=== PATIENT | female | born 1990 | race Caucasian/White ===

== ENCOUNTER → 2017-08-06 | Outpatient (CLI) | payer OTHER ==
[~2017-08-06] MED LIST: SERT-129 PO; SPRI28TA PO
== END ==
LOC: HPND 07:47
PROVIDERS: ATTEND Family Medicine
DX: O26.842 Uterine size-date discrepancy, second trimester (principal)
CPT/HCPCS: 76801

== ENCOUNTER → 2017-09-17 | Outpatient (CLI) | payer MEDICAID, OTHER | LOC: HPND 07:52 | PROVIDERS: ATTEND Family Medicine | DX: Z36.3 Encounter for antenatal screening for malformations (principal) | CPT/HCPCS: 76805 ==

== ENCOUNTER → 2017-09-23 | Outpatient (CLI) | payer MEDICAID ==
[2017-09-23 16:27] LABS: AUTOMATED NEUTROPHIL # 7.3 TH/MM3 (1.8-7.7); BASOPHIL % 0.3 % (0.0-2.0); EOSINOPHIL # 0.2 TH/MM3 (0-0.4); EOSINOPHIL % 1.5 % (0.0-4.0); HEMATOCRIT 36.6 % (35.0-46.0); HEMOGLOBIN 12.6 GM/DL (11.6-15.3); LYMPH % 20.2 % (9.0-44.0); MEAN CELL VOLUME 81.2 FL (80.0-100.0); MEAN CORPUSCULAR HEMOGLOBIN 27.9 PG (27.0-34.0); MEAN CORPUSCULAR HGB CONC 34.4 % (32.0-36.0); MEAN PLATELET VOLUME 7.7 FL (7.0-11.0); MONOCYTE # 0.6 TH/MM3 (0-0.9); PLATELET COUNT 272 TH/MM3 (150-450); RED BLOOD COUNT 4.51 MIL/MM3 (4.00-5.30); RED CELL DISTRIBUTION WIDTH 15.8 % (11.6-17.2); WHITE BLOOD COUNT 10.1 TH/MM3 (4.0-11.0)
== END ==
LOC: CLAB 15:36
PROVIDERS: ATTEND Family Medicine
DX: Z34.91 Encounter for supervision of normal pregnancy, unspecified, first trimester (principal)
CPT/HCPCS: 36415; 83020; 85025; 86317; 86592; 86701; 86702; 86762; 86850; 86900; 86901; 87086; 87340; 87491; 87591

== ENCOUNTER → 2017-10-15 | Outpatient (CLI) | payer MEDICAID | LOC: HPND 14:35 | PROVIDERS: ATTEND Family Medicine | DX: Z36.2 Encounter for other antenatal screening follow-up (principal) | CPT/HCPCS: 76816 ==

== ENCOUNTER 2018-02-21 18:06 | Inpatient (IN) ==
[2018-02-21] MEDS ORDERED: Sod Chloride 0.9% Inj 1,000 ML IV.CONT PRN (18:38)
[2018-02-21] MEDS ORDERED: Sodium Chlor 0.9% Inj 500 ML IV.SIG PRN (18:38)
[2018-02-21] MEDS ORDERED: Oxytocin 30 Units/500ml Premix 30 UNITS/500 ML BAG IV.SIG ONE (18:38)
[2018-02-21] MEDS ORDERED: fentaNYL Citrate Inj 100 MCG/2 ML Ampul IV.PUSH PRN ×2 (18:38)
[2018-02-21] MEDS ORDERED: Naloxone Inj 0.4 MG/ML Vial IV.PUSH PRN (18:38)
--- NOTE | 2018-02-21 18:44 | P.HPOB ---
History of Present Illness Primary Care Physician: [facility] History of Present Illness: at 41 weeks gestation, presents for scheduled induction of labor for postdates. Denies any contractions, leakage of fluid, vaginal bleeding. Positive movement. OB history: This has been uncomplicated Previous vaginal delivery in 2012, baby 7 pounds 2 ounces; complicated by preeclampsia at the end of , on magnesium Medical history: Depression/OCD Surgical history: None Meds:Sertraline 100mg daily All: NKDA - Inpatient Certification I certify that the inpatient services were ordered in accordance with Medicare regulations governing the order. This includes certification that hospital inpatient services are reasonable and necessary and in the case of services not specified as inpatient-only under 42 CFR 419.22(n), that they are appropriately provided as inpatient services in accordance to with the 2-midnight benchmark under 43 CFR 412.3(e) Estimated Total Length of Stay (Days): 2 Plans for Post Hospital Care: Home Review of Systems All other systems reviewed negative except as stated in HPI PMFSH - History History Provided By: Patient - Travel History Recent Travel in the [place] Within the Last 8 Weeks: No Recent Travel Out of the Country Within the Last 8 Weeks: No Medications and Allergies Active Medications: Active Medications Citric Acid/Sodium Citrate (Sodium Citrate/Citric Acid Liq) 30 ml PO [facility] Stop: 02/25/18 18:44 Fentanyl Citrate (Fentanyl Inj) 50 mcg IV.PUSH Q1H PRN PRN Reason: Pain Scale 3 - 5 Fentanyl Citrate (Fentanyl Inj) 100 mcg IV.PUSH Q1H PRN PRN Reason: PAIN SCALE 6 TO 10 Lactated Ringer's (Lr 1000 Ml Inj) 1,000 mls @ 3,000 mls/hr IV.SIG UNSCH PRN PRN Reason: compromise or epidural Lactated Ringer's (Lr 1000 Ml Inj) 1,000 mls @ 125 mls/hr IV.CONT .Q8H CHELSEY Sodium Chloride (Ns Inj) 1,000 mls @ 100 mls/hr IV.CONT .Q10H PRN PRN Reason: SEE LABEL COMMENTS Oxytocin (Pitocin 30 Units/Ns 500 Ml Premix) 30 units in 500 mls @ 999 mls/hr IV.SIG BOLUS ONE Stop: 02/21/18 19:08 Sodium Chloride (Ns Inj) 500 mls @ 1,000 mls/hr IV.SIG UNSCH PRN PRN Reason: SEE LABEL COMMENTS Lidocaine HCl (Xylocaine 1% Inj) 0.1 ml I-DERMAL PRN PRN PRN Reason: For IV start Stop: 02/24/18 18:37 Lidocaine HCl (Xylocaine 1% Inj) 10 ml INFILTRATN PRN PRN PRN Reason: For episiotomy repair Stop: 02/23/18 18:37 Mineral Oil (Muri-Lube Oil) 10 ml TOPICAL PRN PRN PRN Reason: PRN perineal massage Naloxone HCl (Narcan Inj) 0.1 mg IV.PUSH Q2M PRN PRN Reason: for opiate reversal Allergies Allergy/AdvReac Type Severity Reaction Status Date / Time No Known Allergies Unknown Uncoded 04/02/17 09:34 Home Medications Medication Instructions Recorded Confirmed Type prenat.vits,rocky,tkb-erha-wudih 1 tab PO DAILY 02/15/18 02/15/18 History [ Vitamin] sertraline [Zoloft] PO DAILY 02/15/18 History Exam Vital signs: Vital Signs 02/21/18 18:29 Temperature 98.2 F Pulse Rate 129 H Respiratory Rate 18 Blood Pressure 134/80 Intake & Output 02/20/18 02/21/18 02/21/18 18:59 06:59 18:59 Weight 87.543 kg Other: Weight On Admission 87.543 kg Narrative: GENERAL: Well-nourished, well-developed patient. SKIN: Warm and dry. HEAD: Normocephalic and atraumatic. EYES: No scleral icterus. No injection or drainage. ENT: No nasal drainage noted. Mucous membranes pink. Airway patent. NECK: Supple, trachea midline. No JVD. CARDIOVASCULAR: Regular rate and rhythm without murmurs, gallops, or rubs. RESPIRATORY: Breath sounds equal bilaterally. No accessory muscle use. ABDOMEN/GI: Abdomen soft, non-tender, bowel sounds present, no rebound, no guarding Gravid to 42 weeks size Fundal Height: 42 SVE: 4cm/60/-2, posterior Tracing: EFM GENITOURINARY: External Genitalia: intact and normal in appearance FHT's: baseline 140, + accels, cat 1 toco: no cxns on monitor EXTREMITIES: No cyanosis or edema. BACK: Nontender without obvious deformity. No CVA tenderness. NEUROLOGICAL: Awake and alert. Motor and sensory grossly within normal limits. Five out of 5 muscle strength in all muscle groups. Normal speech. Results - Labs CBC & Chem 7: 02/21/18 18:35 Caprini VTE Risk Assessment Caprini VTE Risk Assessment: No/Low Risk (score <= 1) Caprini Risk Assessment Model: Point Value = 1 Point Value = 2 Point Value = 3 Point Value = 5 Age 41-60 Minor surgery BMI > 25 kg/m2 Swollen legs Varicose veins or History of unexplained or recurrent spontaneous Oral contraceptives or hormone replacement Sepsis (< 1 month) Serious lung disease, including pneumonia (< 1 month) Abnormal pulmonary function Acute myocardial infarction Congestive heart failure (< 1 month) History of inflammatory bowel disease Medical patient at bed rest Age 61-74 Arthroscopic surgery Major open surgery (> 45 min) Laparoscopic surgery (> 45 min) Malignancy Confined to bed (> 72 hours) Immobilizing plaster cast Central venous access Age >= 75 History of VTE Family history of VTE Factor V Leiden Prothrombin [id number] Lupus anticoagulant Anticardiolipin antibodies Elevated serum homocysteine Heparin-induced thrombocytopenia Other congenital or acquired thrombophilia Stroke (< 1 month) Elective arthroplasty Hip, pelvis, or leg fracture Acute spinal cord injury (< 1 month) Prophylaxis Regimen: Total Risk Factor Score Risk Level Prophylaxis Regimen 0-1 Low Early ambulation 2 Moderate Order ONE of the following: *Sequential Compression Device (SCD) *Heparin 5000 units SQ BID 3-4 Higher Order ONE of the following medications: *Heparin 5000 units SQ TID *Enoxaparin/Lovenox 40 mg SQ daily (WT < 150 kg, CrCl > 30 mL/min) *Enoxaparin/Lovenox 30 mg SQ daily (WT < 150 kg, CrCl > 10-29 mL/min) *Enoxaparin/Lovenox 30 mg SQ BID (WT < 150 kg, CrCl > 30 mL/min) AND/OR *Sequential Compression Device (SCD) 5 or more Highest Order ONE of the following medications: *Heparin 5000 units SQ TID (Preferred with Epidurals) *Enoxaparin/Lovenox 40 mg SQ daily (WT < 150 kg, CrCl > 30 mL/min) *Enoxaparin/Lovenox 30 mg SQ daily (WT < 150 kg, CrCl > 10-29 mL/min) *Enoxaparin/Lovenox 30 mg SQ BID (WT < 150 kg, CrCl > 30 mL/min) AND *Sequential Compression Device (SCD) Assessment and Plan - Diagnosis (1) 41 weeks gestation of Code(s): Z3A.41 - 41 weeks gestation of Status: Acute Plan: at 41 weeks gestation, presents for scheduled induction of labor for postdates. -Admit to labor and delivery -GBS negative -Cervical exam: /-2 -Plan to proceed with Pitocin protocol -We will continue to evaluate with contractions and pain -OB hospitalist aware
[2018-02-21] MEDS ORDERED: Citric Acid/Sodium Citrate Liq 30 ML UDC PO SCH (18:45)
[2018-02-21] MEDS ORDERED: Oxytocin 30 Units/500ml Premix 30 UNITS/500 ML BAG IV.SIG PRN (19:10)
[2018-02-21 19:17] LABS: Baso % (Auto) 0.3 % (0.0-2.0); Eos # (Auto) 0.1 th/mm3 (0.0-0.4); Eos % (Auto) 0.4 % (0.0-4.0); Hematocrit 32.3 % (35.0-46.0); Hemoglobin 10.4 gm/dL (11.6-15.3); Lymph # (Auto) 1.7 th/mm3 (1.0-4.8); Lymph % (Auto) 13.3 % (9.0-44.0); Mean Corpuscular HGB Conc 32.3 % (32.0-36.0); Mean Corpuscular Hemoglobin 24.2 pg (27.0-34.0); Mean Platelet Volume 7.8 fL (7.0-11.0); Mono # (Auto) 0.7 th/mm3 (0.0-0.9); Mono % (Auto) 5.1 % (0.0-8.0); Neut # (Auto) 10.5 th/mm3 (1.8-7.7); Neut % (Auto) 80.9 % (16.0-70.0); Platelet Count 296 th/mm3 (150-450); Red Blood Count 4.31 mil/mm3 (4.00-5.30); Red Cell Distribution Width 16.7 % (11.6-17.2); White Blood Count 12.9 th/mm3 (4.0-11.0)
[2018-02-21] MEDS ORDERED: Lidocaine 1% Inj 50 ML Vial ONE (19:23)
[2018-02-21 19:32] LABS: Amphetamine Urine With Conf Neg (Neg); Benzodiazepine Urine With Conf Neg (Neg)
[2018-02-21 19:38] LABS: Bilirubin,Urine Negative (Negative); Clarity,Urine Hazy (Clear); Color,Urine Yellow (Yellw/Straw); Glucose,Urine (UA) Negative (Negative); Leukocyte Esterase,Urine Trace (Negative); Mucus,Urine Moderate /lpf (Occasional); Nitrite,Urine Negative (Negative); Specific Gravity,Urine 1.025 (1.002-1.035); Squamous Epithelial Cell,Urine 3 /hpf (0-5)
[2018-02-21] MEDS ORDERED: fentaNYL 2MCG-Bupiv 0.125% Epi 150 ML EPIDURAL ONE (21:38)
[2018-02-21] MEDS ORDERED: Bupivacaine PF 0.25% Inj 10 ML Vial ONE (21:49)
[2018-02-21] MEDS ORDERED: Lidocaine PF 1% Inj 5 ML Vial ONE (21:49)
[2018-02-21] MEDS ORDERED: fentaNYL 2MCG-Bupiv 0.125% Epi 150 ML EPIDURAL PRN (22:25)
[2018-02-21] MEDS ORDERED: fentaNYL Citrate Inj 100 MCG/2 ML Ampul EPIDURAL ONE (22:25)
--- NOTE | 2018-02-22 00:46 | P.OBLABOR ---
Subjective Interval history: at 41 weeks gestation, presented for scheduled induction of labor for postdates. Patient has progressed quickly with Pitocin IOL. There was some concern for some variable decelerations. Thus, we decided to perform AROM. Objective Vital Signs: Vital Signs - 8 hr 02/21/18 18:29 02/21/18 18:55 02/21/18 19:28 Temperature 98.2 F Pulse Rate 129 H 120 H 117 H Respiratory Rate 18 Blood Pressure 134/80 134/90 02/21/18 19:58 02/21/18 20:40 02/21/18 20:41 Temperature Pulse Rate 103 H Respiratory Rate 16 16 Blood Pressure 134/83 02/21/18 20:45 02/21/18 21:33 02/21/18 21:56 Temperature 98.2 F Pulse Rate 97 H Respiratory Rate 16 16 Blood Pressure 140/83 02/21/18 22:00 02/21/18 22:02 02/21/18 22:10 Temperature Pulse Rate 100 H 101 H Respiratory Rate 16 Blood Pressure 137/88 02/21/18 22:11 02/21/18 22:25 02/21/18 22:45 Temperature Pulse Rate 81 96 H Respiratory Rate Blood Pressure 129/86 133/75 133/74 02/21/18 22:53 02/21/18 23:00 02/21/18 23:10 Temperature 98.0 F Pulse Rate 90 Respiratory Rate 16 Blood Pressure 130/79 02/21/18 23:15 02/21/18 23:25 02/21/18 23:40 Temperature Pulse Rate 88 79 Respiratory Rate 16 Blood Pressure 121/80 107/53 L 02/21/18 23:45 02/22/18 00:05 02/22/18 00:06 Temperature Pulse Rate 82 90 Respiratory Rate 16 Blood Pressure 122/75 122/80 02/22/18 00:25 Temperature Pulse Rate 92 H Respiratory Rate Blood Pressure 130/89 Objective: Pelvic Exam: Dilatation: [7-8 cm] Effacement: [100%] Station: [0] Presentation: [vertex] Membranes: [AROM with clear fluid at 1230] Uterine Contractions: [q2min, but then recently none] FHT's: Category: [Cat ii because variables are present] Baseline: [120 bpm] Reactive: [reactive] Variability: [moderate] Decels: [variables are present] Artificial ROM Date: 02/22/18 Artificial ROM Time: 00:30 Assessment and Plan - Diagnosis (1) 41 weeks gestation of Code(s): Z3A.41 - 41 weeks gestation of Status: Acute Plan: at 41 weeks gestation, presents for scheduled induction of labor for postdates. at 41 weeks gestation, presents for scheduled induction of labor for postdates. Patient has progressed quickly with Pitocin IOL. There was some concern for some variable decelerations. Thus, we decided to perform AROM. Pelvic Exam: [7-8 cm]/[100%]/[0] Performed AROM with clear fluid at 1230 FHT's: Category: [Cat ii because variables are present] -Plan to proceed with Pitocin protocol -epidural in place -We will continue to evaluate with c/f variable decel's -OB hospitalist aware
--- NOTE | 2018-02-22 02:05 | P.OBDELI ---
Weeks Gestation: 41 Medical Induction of Labor: Yes Medical Induction Start Date: 02/21/18 Medical Induction Start Time: 19:30 Artificial Rupture of Membrane: Yes (at 1230, clear fluid) Artificial ROM Date: 02/22/18 Artificial ROM Time: 12:30 Anesthesia: Epidural Episiotomy: none Vaginal Delivery: Normal Presentation: Occiput anterior Nuchal Cord: None Delayed Cord Clamping (45 sec): Yes Placenta: Spontaneous delivery, Intact Laceration: Vaginal (1st degree rick-urethral lacerations), Perineal (2nd degree ), 2 deg Repair: Chromic running (3-0 chromic used to repair 2nd degree perineal laceration), Vicryl running (4-0 vicryl used to repair BL 1st degree rick- urethral lacerations) Estimated blood loss (mL): 250 : Female Additional Information: Delivery supervised by Dr. Chatman who performed the laceration repairs.
[2018-02-22] MEDS ORDERED: Bisacodyl 10 MG Supp RECTAL PRN (02:06)
[2018-02-22] MEDS ORDERED: Oxytocin 30 Units/500ml Premix 30 UNITS/500 ML BAG IV.CONT PRN (02:06)
[2018-02-22] MEDS ORDERED: Zolpidem Tartrate 5 MG Tablet PO PRN (02:06)
[2018-02-22] MEDS ORDERED: Naloxone Inj 0.4 MG/ML Vial IV.PUSH PRN (02:06)
[2018-02-22] MEDS ORDERED: Acetaminophen 325 MG Tablet PO PRN (02:06)
[2018-02-22] MEDS ORDERED: Benzocaine 20% Top Spray 60 ML Can TOPICAL PRN (02:06)
[2018-02-22] MEDS ORDERED: Witch Hazel 50%/Glyderin 12.5% 40 Pad Jar RECTAL PRN (02:06)
[2018-02-22] MEDS: Prenatal Vit/Ca/Iron/Folic Acid Tablet PO SCH (08:11)
[2018-02-22] MEDS: Senna/Docusate Sodium 8.6/50 MG Tablet PO SCH ×2 (08:11→22:39)
--- NOTE | 2018-02-22 08:22 | P.PNOB ---
Subjective Post day: 0 Interval history: Patient is a 27-year-old delivered at 41 weeks and 1 day. Patient is day 0 after IVD for post-dates. Patient's pain is well-controlled. Patient reports eating and drinking without any nausea or vomiting. Patient reports minimal bleeding. Patient has passed gas but no bowel movements. Patient is walking without lower extremity pain or shortness of breath. Patient reports desire for formula- and breast-feeding. Objective Vital Signs/I&O: Vital Signs 02/21/18 18:29 02/21/18 18:55 02/21/18 19:28 Temperature 98.2 F Pulse Rate 129 H 120 H 117 H Respiratory Rate 18 Blood Pressure 134/80 134/90 02/21/18 19:58 02/21/18 20:40 02/21/18 20:41 Temperature Pulse Rate 103 H Respiratory Rate 16 16 Blood Pressure 134/83 02/21/18 20:45 02/21/18 21:33 02/21/18 21:56 Temperature 98.2 F Pulse Rate 97 H Respiratory Rate 16 16 Blood Pressure 140/83 02/21/18 22:00 02/21/18 22:02 02/21/18 22:10 Temperature Pulse Rate 100 H 101 H Respiratory Rate 16 Blood Pressure 137/88 02/21/18 22:11 02/21/18 22:25 02/21/18 22:45 Temperature Pulse Rate 81 96 H Respiratory Rate Blood Pressure 129/86 133/75 133/74 02/21/18 22:53 02/21/18 23:00 02/21/18 23:10 Temperature 98.0 F Pulse Rate 90 Respiratory Rate 16 Blood Pressure 130/79 02/21/18 23:15 02/21/18 23:25 02/21/18 23:40 Temperature Pulse Rate 88 79 Respiratory Rate 16 Blood Pressure 121/80 107/53 L 02/21/18 23:45 02/22/18 00:05 02/22/18 00:06 Temperature Pulse Rate 82 90 Respiratory Rate 16 Blood Pressure 122/75 122/80 02/22/18 00:25 02/22/18 00:30 02/22/18 00:50 Temperature Pulse Rate 92 H 113 H 89 Respiratory Rate Blood Pressure 130/89 137/85 124/91 H 02/22/18 01:45 02/22/18 01:50 02/22/18 02:01 Temperature Pulse Rate Respiratory Rate 16 18 Blood Pressure 131/111 H 02/22/18 02:05 02/22/18 02:18 02/22/18 02:35 Temperature Pulse Rate 131 H Respiratory Rate 16 16 16 Blood Pressure 111/71 02/22/18 04:20 Temperature 98.8 F Pulse Rate 90 Respiratory Rate 18 Blood Pressure 125/76 Intake & Output 02/21/18 02/22/18 02/22/18 18:59 06:59 18:59 Weight 87.543 kg Other: Weight On Admission 87.543 kg Result Diagrams: 02/21/18 18:35 Objective Remarks: GENERAL: Well-nourished, well-developed patient. CARDIOVASCULAR: Regular rate and rhythm without murmurs, gallops, or rubs. RESPIRATORY: Breath sounds equal bilaterally. No accessory muscle use. ABDOMEN/GI: Abdomen soft, non-tender. Fundus: Firm, non-tender at umbilicus. GENITOURINARY: Light to moderate bleeding. EXTREMITIES: No cyanosis or edema, non-tender, without signs of DVT. Medications and IVs: Active Medications Acetaminophen (Tylenol) 650 mg PO Q4H PRN PRN Reason: PAIN SCALE 1 TO 2 Al Hydroxide/Mg Hydroxide (Milk Of Magnesia Liq) 30 ml PO Q12H PRN PRN Reason: Mild Constipation Benzocaine (Americaine 20% [place]) 1 spray TOPICAL Q4H PRN PRN Reason: For Perineum Discomfort Last Admin: 02/22/18 08:11 Dose: 1 spray Bisacodyl (Dulcolax Supp) 10 mg RECTAL DAILY PRN PRN Reason: SEVERE CONSITIPATION Oxytocin (Pitocin 30 Units/Ns 500 Ml Premix) 30 units in 500 mls @ 2 mls/hr IV.SIG TITRATE PRN; Protocol PRN Reason: For induction of labor Oxytocin (Pitocin 30 Units/Ns 500 Ml Premix) 30 units in 500 mls @ 100 mls/hr IV.CONT UNSCH PRN PRN Reason: Heavy bleeding Ibuprofen (Motrin) 800 mg PO Q8H PRN PRN Reason: For Cramping Lactulose (Lactulose Liq) 30 ml PO DAILY PRN PRN Reason: SEVERE CONSITIPATION Measles/Mumps/Rubella Vaccine Live (M-M-R Ii Vaccine Inj) 0.5 ml SQ .ONCE ONE Stop: 02/22/18 16:01 Naloxone HCl (Narcan Inj) 0.1 mg IV.PUSH Q2M PRN PRN Reason: for opiate reversal Ondansetron HCl (Zofran Odt) 4 mg PO Q6H PRN PRN Reason: NAUSEA OR VOMITING Vit/Calcium/Iron/Folic Ac (Stuartnatal Plus 3) 1 tab PO DAILY [facility] Last Admin: 02/22/18 08:11 Dose: 1 tab Senna/Docusate Sodium (Apurva-Colace) 1 tab PO BID [facility] Last Admin: 02/22/18 08:11 Dose: 1 tab Sennosides (Senokot) 17.2 mg PO Q12H PRN PRN Reason: Moderate Constipation Sodium Chloride (Ns Flush) 2 ml IV.FLUSH BID [facility] Last Admin: 02/22/18 08:11 Dose: 2 ml Sodium Chloride (Ns Flush) 2 ml IV.FLUSH PRN PRN PRN Reason: FLUSH AFTER USING IV ACCESS Witch Alicja/Glycerin (Tucks Pads) 1 applicatio RECTAL QID PRN PRN Reason: HEMORRHOIDS Last Admin: 02/22/18 08:11 Dose: 1 applicatio Zolpidem Tartrate (Ambien) 5 mg PO HS PRN PRN Reason: SLEEP Assessment and Plan - Diagnosis (1) 41 weeks gestation of Code(s): Z3A.41 - 41 weeks gestation of Status: Acute Plan: -Delivered - Plan Patient is a 27-year-old delivered at 41 weeks and 1 day. Patient is day 0 after IVD for post-dates. Patient was counseled to do 6 weeks of pelvic rest. Patient was counseled to follow up in 6 weeks. Patient requested follow-up and contraception. --AF VSS --Continue routine care --Motrin and Tylenol/Holden when necessary for pain --Encourage OOB --Pelvic rest for 6 weeks will need follow-up appointment at that time. --Contraception: will discuss tomorrow --Anticipate discharge tomorrow or the next day
[2018-02-22] MEDS: Sertraline 100 MG Tablet PO SCH (09:54)
[2018-02-22] MEDS ORDERED: Measles/Mumps/Rubella Vaccine Inj 0.5 ML Vial SQ ONE (16:00)
--- NOTE | 2018-02-23 07:53 | P.PNOB ---
Subjective Post day: 1 Interval history: Patient is a 27-year-old delivered at 41 weeks and 1 day. Patient is day 1 after IVD for post-dates. Patient's pain is well-controlled. Patient reports eating and drinking without any nausea or vomiting. Patient reports minimal bleeding. Patient has passed gas and bowel movements. Patient is walking without lower extremity pain or shortness of breath. Patient reports desire for formula- and breast-feeding. Objective Vital Signs/I&O: Vital Signs 02/22/18 08:00 02/22/18 19:43 Temperature 99.1 F 98.1 F Pulse Rate 102 H 76 Respiratory Rate 20 18 Blood Pressure 116/69 124/80 Result Diagrams: 02/21/18 18:35 Objective Remarks: GENERAL: Well-nourished, well-developed patient. CARDIOVASCULAR: Regular rate and rhythm without murmurs, gallops, or rubs. RESPIRATORY: Breath sounds equal bilaterally. No accessory muscle use. ABDOMEN/GI: Abdomen soft, non-tender. Fundus: Firm, non-tender at umbilicus. GENITOURINARY: Light to moderate bleeding. EXTREMITIES: No cyanosis. Trace edema, non-tender, without signs of DVT. Medications and IVs: Active Medications Acetaminophen (Tylenol) 650 mg PO Q4H PRN PRN Reason: PAIN SCALE 1 TO 2 Al Hydroxide/Mg Hydroxide (Milk Of Magnalysa Liq) 30 ml PO Q12H PRN PRN Reason: Mild Constipation Benzocaine (Americaine 20% Top [place]) 1 spray TOPICAL Q4H PRN PRN Reason: For Perineum Discomfort Last Admin: 02/22/18 08:11 Dose: 1 spray Bisacodyl (Dulcolax Supp) 10 mg RECTAL DAILY PRN PRN Reason: SEVERE CONSITIPATION Oxytocin (Pitocin 30 Units/Ns 500 Ml Premix) 30 units in 500 mls @ 2 mls/hr IV.SIG TITRATE PRN; Protocol PRN Reason: For induction of labor Oxytocin (Pitocin 30 Units/Ns 500 Ml Premix) 30 units in 500 mls @ 100 mls/hr IV.CONT UNSCH PRN PRN Reason: Heavy bleeding Ibuprofen (Motrin) 800 mg PO Q8H PRN PRN Reason: For Cramping Last Admin: 02/22/18 22:39 Dose: 800 mg Lactulose (Lactulose Liq) 30 ml PO DAILY PRN PRN Reason: SEVERE CONSITIPATION Miscellaneous (Pill Splitter) 1 each OTHER UNSCH PRN PRN Reason: SEE LABEL COMMENTS Naloxone HCl (Narcan Inj) 0.1 mg IV.PUSH Q2M PRN PRN Reason: for opiate reversal Ondansetron HCl (Zofran Odt) 4 mg PO Q6H PRN PRN Reason: NAUSEA OR VOMITING Vit/Calcium/Iron/Folic Ac (Stuartnatal Plus 3) 1 tab PO DAILY [facility] Last Admin: 02/22/18 08:11 Dose: 1 tab Senna/Docusate Sodium (Apurva-Colace) 1 tab PO BID [facility] Last Admin: 02/22/18 22:39 Dose: 1 tab Sennosides (Senokot) 17.2 mg PO Q12H PRN PRN Reason: Moderate Constipation Sertraline HCl (Zoloft) 150 mg PO DAILY [facility] Last Admin: 02/22/18 09:54 Dose: 150 mg Sodium Chloride (Ns Flush) 2 ml IV.FLUSH BID [facility] Last Admin: 02/22/18 08:11 Dose: 2 ml Sodium Chloride (Ns Flush) 2 ml IV.FLUSH PRN PRN PRN Reason: FLUSH AFTER USING IV ACCESS Witch Alicja/Glycerin (Tucks Pads) 1 applicatio RECTAL QID PRN PRN Reason: HEMORRHOIDS Last Admin: 02/22/18 08:11 Dose: 1 applicatio Zolpidem Tartrate (Ambien) 5 mg PO HS PRN PRN Reason: SLEEP Assessment and Plan - Diagnosis (1) 41 weeks gestation of Code(s): Z3A.41 - 41 weeks gestation of Status: Acute Plan: -Delivered - Plan Patient is a 27-year-old delivered at 41 weeks and 1 day. Patient is day 1 after IVD for post-dates. Patient was counseled to do 6 weeks of pelvic rest. Patient was counseled to follow up in 6 weeks. Patient requested follow-up and contraception. --AF VSS --Continue routine care --Motrin and Tylenol/[place] when necessary for pain --Encourage OOB --Pelvic rest for 6 weeks will need follow-up appointment at that time. --Contraception: patient planning on tubal ligation --Anticipate discharge tomorrow
[2018-02-23] MEDS: Prenatal Vit/Ca/Iron/Folic Acid Tablet PO SCH (09:44)
[2018-02-23] MEDS: Sertraline 100 MG Tablet PO SCH (09:45)
[2018-02-23] MEDS: Senna/Docusate Sodium 8.6/50 MG Tablet PO SCH ×2 (10:17→20:43)
--- NOTE | 2018-02-24 07:57 | P.PNOB ---
Subjective Post day: 2 Interval history: Patient is a 27-year-old delivered at 41 weeks and 1 day. Patient is day 2 after IVD for post-dates. Patient's pain is well-controlled. Patient reports eating and drinking without any nausea or vomiting. Patient reports minimal bleeding. Patient has passed gas and bowel movements. Patient is walking without lower extremity pain or shortness of breath. Patient reports desire for formula- and breast-feeding. Objective Vital Signs/I&O: Vital Signs 02/23/18 08:00 02/23/18 20:43 Temperature 97.8 F 99.1 F Pulse Rate 72 93 H Respiratory Rate 20 20 Blood Pressure 118/79 108/76 Result Diagrams: 02/21/18 18:35 Objective Remarks: GENERAL: Well-nourished, well-developed patient. CARDIOVASCULAR: Regular rate and rhythm without murmurs, gallops, or rubs. RESPIRATORY: Breath sounds equal bilaterally. No accessory muscle use. ABDOMEN/GI: Abdomen soft, non-tender. Fundus: Firm, non-tender at umbilicus. GENITOURINARY: Light to moderate bleeding. EXTREMITIES: No cyanosis or edema, non-tender, without signs of DVT. Medications and IVs: Active Medications Acetaminophen (Tylenol) 650 mg PO Q4H PRN PRN Reason: PAIN SCALE 1 TO 2 Al Hydroxide/Mg Hydroxide (Milk Of Magnalysa Liq) 30 ml PO Q12H PRN PRN Reason: Mild Constipation Benzocaine (Americaine 20% Top [place]) 1 spray TOPICAL Q4H PRN PRN Reason: For Perineum Discomfort Last Admin: 02/22/18 08:11 Dose: 1 spray Bisacodyl (Dulcolax Supp) 10 mg RECTAL DAILY PRN PRN Reason: SEVERE CONSITIPATION Oxytocin (Pitocin 30 Units/Ns 500 Ml Premix) 30 units in 500 mls @ 2 mls/hr IV.SIG TITRATE PRN; Protocol PRN Reason: For induction of labor Oxytocin (Pitocin 30 Units/Ns 500 Ml Premix) 30 units in 500 mls @ 100 mls/hr IV.CONT UNSCH PRN PRN Reason: Heavy bleeding Ibuprofen (Motrin) 800 mg PO Q8H PRN PRN Reason: For Cramping Last Admin: 02/23/18 20:43 Dose: 800 mg Lactulose (Lactulose Liq) 30 ml PO DAILY PRN PRN Reason: SEVERE CONSITIPATION Miscellaneous (Pill Splitter) 1 each OTHER UNSCH PRN PRN Reason: SEE LABEL COMMENTS Naloxone HCl (Narcan Inj) 0.1 mg IV.PUSH Q2M PRN PRN Reason: for opiate reversal Ondansetron HCl (Zofran Odt) 4 mg PO Q6H PRN PRN Reason: NAUSEA OR VOMITING Vit/Calcium/Iron/Folic Ac (Stuartnatal Plus 3) 1 tab PO DAILY [facility] Last Admin: 02/23/18 09:44 Dose: 1 tab Senna/Docusate Sodium (Apurva-Colace) 1 tab PO BID [facility] Last Admin: 02/23/18 20:43 Dose: 1 tab Sennosides (Senokot) 17.2 mg PO Q12H PRN PRN Reason: Moderate Constipation Sertraline HCl (Zoloft) 150 mg PO DAILY [facility] Last Admin: 02/23/18 09:45 Dose: 150 mg Sodium Chloride (Ns Flush) 2 ml IV.FLUSH BID [facility] Last Admin: 02/23/18 20:41 Dose: Not Given Sodium Chloride (Ns Flush) 2 ml IV.FLUSH PRN PRN PRN Reason: FLUSH AFTER USING IV ACCESS Witch Alicja/Glycerin (Tucks Pads) 1 applicatio RECTAL QID PRN PRN Reason: HEMORRHOIDS Last Admin: 02/22/18 08:11 Dose: 1 applicatio Zolpidem Tartrate (Ambien) 5 mg PO HS PRN PRN Reason: SLEEP Assessment and Plan - Diagnosis (1) 41 weeks gestation of Code(s): Z3A.41 - 41 weeks gestation of Status: Acute Plan: -Delivered - Plan Patient is a 27-year-old delivered at 41 weeks and 1 day. Patient is day 2 after IVD for post-dates. Patient was counseled to do 6 weeks of pelvic rest. Patient was counseled to follow up in 6 weeks. Patient requested follow-up and contraception. --AF VSS --Continue routine care --Motrin and Tylenol/Crane when necessary for pain --Encourage OOB --Pelvic rest for 6 weeks will need follow-up appointment at that time. --Contraception: patient planning on tubal ligation --Anticipate discharge today - Attending Attestation The exam, history, and the medical decision-making described in the above note were completed with the assistance of the resident physician. I reviewed and agree with the findings presented. I attest that I had a [id number] encounter with the patient on the same day, and personally performed and documented my assessment and findings in the medical record.
[2018-02-24 09:39] VITALS: BP 118/77; PULSE 70; RESP 18; TEMP 97.8
[2018-02-24] MEDS: Prenatal Vit/Ca/Iron/Folic Acid Tablet PO SCH (10:00)
[2018-02-24] MEDS: Sertraline 100 MG Tablet PO SCH (10:00)
[2018-02-24] MEDS: Senna/Docusate Sodium 8.6/50 MG Tablet PO SCH (10:00)
== END 2018-02-24 10:40 | disposition home or self-care (01) ==
LOC: H2E 18:06 → H1EA 02-22 07:13
PROVIDERS: ADMIT Obstetrics & Gynecology; ATTEND Obstetrics & Gynecology